=== PATIENT | male | born 1945 | race Caucasian/White ===

== ENCOUNTER → 2022-09-16 | Outpatient (CLI) | payer MEDICARE ==
[~2022-09-16] MED LIST: ALDACTONE25 MG PO; AMLODIPINE BESYL5 MG PO; ASPIRIN81 M1 PO; ATORVASTATIN CA40 M1 PO; DOCUSATE SOD100 MG PO; ELIQUIS5 M1 PO; FEROSUL325 MG PO; HYDRALAZINE10 MG PO; HYDROCODONE-AC1 EAC1 PO; METOPROLOL SUCC25 M2 PO; MULTI-VITAMINS1 TA1 PO; TOPROL XL100 MG PO
== END | disposition home or self-care (01) ==
LOC: ORTHO 09-15 09:44
PROVIDERS: ATTEND Orthopaedic Surgery
DX: S72.141D Displaced intertrochanteric fracture of right femur, subsequent encounter for closed fracture with routine healing (principal); X58.XXXD Exposure to other specified factors, subsequent encounter

== ENCOUNTER → 2022-10-17 | Outpatient (CLI) | payer MEDICARE | END | disposition home or self-care (01) | LOC: ORTHO 01:01 | PROVIDERS: ATTEND Orthopaedic Surgery | DX: S72.141D Displaced intertrochanteric fracture of right femur, subsequent encounter for closed fracture with routine healing (principal); X58.XXXD Exposure to other specified factors, subsequent encounter ==

== ENCOUNTER → 2024-09-16 | Outpatient (CLI) | payer MEDICARE | END | disposition home or self-care (01) | LOC: CARD 07-29 11:30 | PROVIDERS: ATTEND Internal Medicine Cardiovascular Disease | DX: I35.8 Other nonrheumatic aortic valve disorders (principal); I51.7 Cardiomegaly; I25.2 Old myocardial infarction; Z95.0 Presence of cardiac pacemaker ==